=== PATIENT | female | born 2000 | race Caucasian/White ===

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

== ENCOUNTER 2024-03-04 21:26 | Emergency (ER) | payer OTHER ==
[~2024-03-04] VITALS: Ht 152.4 cm; Wt 63.1 kg
[~2024-03-04 21:26] MED LIST changes: +BENZONATATE200 MG PO; +DOXYCYCLINE HY100 MG PO; +FLUTICASONE PRO16 GM NAS; +HYDROCODON-ACE1 EA10 PO; +ONDANSETRON ODT4 MG SL; +ZAFEMY 150-351 EACH TD; +ZOFRAN4 MG PO
[2024-03-04] MEDS ORDERED: IBUPROFEN 400 MG TAB PO ONE (21:45)
[2024-03-04 22:33] VITALS: BP 116/87
== END 2024-03-04 22:34 | disposition home or self-care (01) ==
LOC: ED 21:26
DX: S63.502A Unspecified sprain of left wrist, initial encounter (principal); V29.888A Rider (driver) (passenger) of other motorcycle injured in other specified transport accidents, initial encounter; Z88.0 Allergy status to penicillin; Z88.5 Allergy status to narcotic agent; Z79.899 Other long term (current) drug therapy
CPT/HCPCS: 73110; 99283-25; A9270